=== PATIENT | male | born 1990 ===

== ENCOUNTER 2020-06-28 10:38 | Outpatient (REF) | payer OTHER, SELFPAY ==
[2020-06-28 15:08] LABS: Alanine Aminotransferase 72 U/L (0-40); Albumin Level 4.7 g/dL (3.5-5.0); Alkaline Phosphatase 87 U/L (39-117); Anion Gap 12 (12-20); Aspartate Amino Transferase 35 U/L (5-37); Bilirubin Total 0.7 mg/dL (0.0-1.0); Blood Urea Nitrogen 12 mg/dL (9-16); Calcium 9.5 mg/dL (8.4-10.2); Carbon Dioxide 31 mmol/L (22-29); Chloride 102 mmol/L (96-108); Cholesterol 261 mg/dL; Estimated Glomerular Filt Rate > 60; Glucose Fasting 97 mg/dL (60-99); HDL Cholesterol 43 mg/dL; LDL Cholesterol Calculated 164 mg/dl; Potassium 3.8 mmol/l (3.3-5.1); Sodium 141 mmol/L (135-145); Total Protein 7.6 g/dL (6.5-8.0); Triglycerides 270 mg/dL
[2020-06-28 15:20] LABS: TSH reflex Free T4 0.75 mIU/mL (0.32-4.0)
[2020-07-02 11:52] LABS: Testosterone, Total 424 ng/dL (250-1100)
== END 2020-06-28 10:39 | disposition home or self-care (01) ==
LOC: HO.HMGCLDS 10:38
PROVIDERS: PCP Nurse Practitioner Family; Visit Provider Nurse Practitioner Family
DX: Z00.00 Encounter for general adult medical examination without abnormal findings (principal); N52.9 Male erectile dysfunction, unspecified; R74.8 Abnormal levels of other serum enzymes
CPT/HCPCS: 80053; 80061; 84403; 84443

== ENCOUNTER 2020-07-08 08:34 | Outpatient (REF) | payer OTHER, SELFPAY ==
--- NOTE | 2020-07-08 08:59 | US_ITS ---
EXAMINATION: US ABDOMEN COMPLETE CLINICAL INFORMATION: Abnormal levels of other serum enzymes. R74.8 COMPARISON: None TECHNIQUE: Real-time imaging of the abdominal viscera. FINDINGS: PANCREAS: Normal in size and contour and echogenicity. No pancreatic ductal distention. ABDOMINAL AORTA: The proximal, mid, and distal segments are normal in caliber. INFERIOR VENA CAVA: Visualized portions are normal. LIVER: Liver is normal in size and smooth in contour. Hepatic parenchymal echogenicity is borderline increased which may suggest mild underlying hepatic steatosis. There is no intrahepatic ductal dilatation or focal hepatic parenchymal lesion. GALLBLADDER: Normal. The gallbladder is physiologically distended without evidence of stones, sludge, polyps, wall thickening or pericholecystic fluid. COMMON BILE DUCT: Normal in caliber measuring 0.3 cm in diameter. RIGHT KIDNEY: Normal. No hydronephrosis. No renal calculi or focal parenchymal lesions. The kidney measures 9.8 cm in maximum dimension. LEFT KIDNEY: Normal. No hydronephrosis. No renal calculi or focal parenchymal lesions. The kidney measures 10.2 cm in maximum dimension. SPLEEN: Normal. The spleen measures 10.7 cm in maximum dimension. FREE FLUID: None. US/US abdomen complete IMPRESSION: 1. Probable mild hepatic steatosis. No focal parenchymal lesion. 2. No cholelithiasis or ductal dilatation. 3. Unremarkable pancreas.
== END 2020-07-08 08:35 | disposition home or self-care (01) ==
LOC: HO.HMGCX 08:34
PROVIDERS: Visit Provider Nurse Practitioner Family
DX: R74.8 Abnormal levels of other serum enzymes (principal)
CPT/HCPCS: 76700

== ENCOUNTER 2020-08-24 16:22 | Outpatient (REF) | payer OTHER, SELFPAY | END 2020-08-24 16:23 | disposition home or self-care (01) | LOC: HO.LAB 16:22 | PROVIDERS: Visit Provider Nurse Practitioner Family | DX: R30.0 Dysuria (principal) | CPT/HCPCS: 87086; 87088; 87186 ==

== ENCOUNTER 2023-11-27 13:57 | Outpatient (AMB) | payer OTHER, SELFPAY ==
--- NOTE | 2023-11-27 14:03 | AM.OFFWIN_ITS ---
Intake Vital Signs 11/27/23 14:04 Height 6 ft 2 in Weight 236 lb BMI 30.3 BP 130/76 Blood Pressure Location Rt brachial Position Sitting Pulse 65 Pulse Source Pulse Oximeter Temp 98.0 F Temp Source Oral Pulse Oximetry (%) 96 Oxygen Delivery Method Room Air Intake Visit Reasons: EP Left knee Pain Intake Note: pt is here for left knee pain due to playing in ball pit with his daughter last week and her a crack/pop Patient Tobacco Use Status: Never used Tobacco Allergies No Known Allergies Allergy (Verified 11/27/23 14:33) Medication List - Last Reconciled 11/27/23 by ELINA Pimentel No Known Home Meds Do you need a note to return to daycare/school/sports/work: Yes HPI HPI Comments History of Present Illness Details Patient is 33-year-old male in today for sick visit. He states that 10 days prior he was at an indoor plate placed with his child, he jumped into the ball pit thinking it was much deeper that really was, he landed awkwardly on his left knee. He states that at that time he did here cracking noise. He has been able to ambulate the affected limb, however the pain has persisted has gotten increasingly worse over time. Patient works on his feet throughout the day this is an having his ability to work. Has not tried any medication for relief. [facility] Medical History (Updated 11/27/23 @ 14:32 by ELINA Pimentel) Dyslipidemia Erectile dysfunction Social History Alcohol intake: current Alcohol intake frequency: a few times a month Patient Tobacco Use Status: Never used Tobacco Review of Systems Const All systems reviewed & are unremarkable except as noted in HPI and below Physical Exam Vital Signs: Last Vital Signs Temp 98.0 F 11/27/23 14:04 Pulse 65 11/27/23 14:04 BP 130/76 11/27/23 14:04 Pulse Ox 96 11/27/23 14:04 Oxygen Delivery Method Room Air 11/27/23 14:04 BMI result Body Mass Index 30.3 Const Other: Appearance: Alert.? Oriented X3.? No acute distress.? Head: Normocephalic,. Neck: Normal inspection.? Neck supple.? CVS: Normal heart rate and rhythm.? Pulses normal.? Respiratory: No respiratory distress. Abdomen: Soft and nontender.? Skin: Skin warm and dry.? Normal skin color.? Normal skin turgor.? Extremities: No lower extremity edema.? negative Lachmans, negative Mcmurrays test. Patient is able to ambulate on extremity. Neuro: Oriented X 3.? No motor deficit.? No sensory deficit. Assessment & Plan Assessment & Plan (1) Left knee sprain: Comment: X-ray appears negative in office. Patient will be given knee brace. Patient will be given meloxicam. Patient has been instructed to get inserts for shoes. To rest the affected joint and ice. Code(s): S83.92XA - Sprain of unspecified site of left knee, initial encounter Qualifiers: Encounter type: initial encounter Involved ligament of knee: unspecified ligament Qualified Code(s): S83.92XA - Sprain of unspecified site of left knee, initial encounter Plan: Take your medications as prescribed. If you were prescribed antibiotics today, it is important that you take your medication to their entirety, do not skip any doses, do not finish them early. Follow-up with your primary care provider this week. Return to the emergency department with new or worsening symptoms. Such as fevers, chills, chest pain, shortness of breath, nausea, vomiting, dizziness, headache, vision changes, lethargy In case of emergency call 911 Medications: New meloxicam 15 mg PO DAILY 14 tabs 0RF Coding Level of Care Code Est Pt Level 3 (26513) Diagnoses Sprain of left knee, unspecified ligament, initial encounter S83.92XA Encounter type: initial encounter Involved ligament of knee: unspecified ligament Time Spent (min) 31
[2023-11-27 14:04] VITALS: BP 130/76; PULSE 65; TEMP 36.7; O2SAT 96; BMI 30.3
== END 2023-11-27 15:50 | disposition home or self-care (01) ==
PROVIDERS: Visit Provider Nurse Practitioner Primary Care
DX: S83.92XA Sprain of unspecified site of left knee, initial encounter (principal)
CPT/HCPCS: 99213

== ENCOUNTER 2023-11-27 14:11 | Outpatient (REF) | payer OTHER, SELFPAY ==
--- NOTE | ~2023-11-27 | XR_ITS ---
EXAMINATION: XR KNEE, LEFT CLINICAL INFORMATION: Pain COMPARISON: None available. TECHNIQUE: Four views of the left knee. FINDINGS: No acute visible fracture or dislocation. Slight narrowing of the medial femorotibial compartment. Joint space alignment otherwise maintained. Small knee joint effusion. Soft tissues are unremarkable. XR/XR knee LT 4V IMPRESSION: 1. No acute visible fracture or dislocation. 2. Slight narrowing of the medial femorotibial compartment. 3. Small knee joint effusion.
== END 2023-11-27 14:12 | disposition home or self-care (01) ==
LOC: HO.HMGCX 14:11
PROVIDERS: Visit Provider Nurse Practitioner Primary Care
DX: M25.562 Pain in left knee (principal)
CPT/HCPCS: 73564

== ENCOUNTER 2023-12-05 10:50 | Outpatient (AMB) | payer OTHER, SELFPAY ==
--- NOTE | 2023-12-05 11:12 | MHC.OFFWIV ---
Intake Vital Signs 12/05/23 11:15 Height 6 ft 2 in BP 130/78 Blood Pressure Location Rt brachial Position Sitting Pulse 97 Pulse Source Pulse Oximeter Temp 99.0 F Temp Source Oral Pulse Oximetry (%) 99 Intake Visit Reasons: EP Strep throat Intake Note: pt is here for sore throat Patient Tobacco Use Status: Never used Tobacco Allergies No Known Allergies Allergy (Verified 12/05/23 11:15) Do you need a note to return to daycare/school/sports/work: Yes HPI HPI Comments History of Present Illness Details 33 y/o male patient who presents to walk in clinic with c/o sore throat since yesterday night. Pt reports he was in contact with someone with strep - he shook his hands. PFSH Medical History Dyslipidemia Erectile dysfunction Social History Alcohol intake: current Alcohol intake frequency: a few times a month Patient Tobacco Use Status: Never used Tobacco Review of Systems Const All systems reviewed & are unremarkable except as noted in HPI and below Physical Exam Vital Signs: Last Vital Signs Temp 99.0 F 12/05/23 11:15 Pulse 97 12/05/23 11:15 BP 130/78 12/05/23 11:15 Pulse Ox 99 12/05/23 11:15 Const General: comfortable and no acute distress Nutritional Appearance: well nourished Orientation/consciousness: patient oriented x3 HEENT Head: Yes normocephalic Ears: external ears normal and TM's normal bilaterally General nose exam: Normal nasal mucous membranes and turbinates present Face and sinus: Yes sinuses nontender Mouth: moist mucous membranes Throat: Yes posterior oropharynx normal Resp Effort & Inspection: normal respiratory effort and able to speak in complete sentences Auscultation: clear to auscultation bilaterally, no crackles, no rales, no rhonchi and no wheezes Cardio Rate: regular rate Rhythm: regular rhythm Neuro General: patient oriented x3 Assessment & Plan Assessment & Plan (1) Sore throat (viral): Code(s): J02.8 - Acute pharyngitis due to other specified organisms; B97.89 - Other viral agents as the cause of diseases classified elsewhere Plan: - OTC remedies - Rest, hydrate with warm fluids and honey - RTC if not better. -Acetaminophen for pain relief. Coding Level of Care Code Est Pt Level 3 (28999) Diagnoses Sore throat (viral) J02.8; B97.89 Time Spent (min) 15
[2023-12-05 11:15] VITALS: BP 130/78; PULSE 97; TEMP 37.2; O2SAT 99
== END 2023-12-05 12:35 | disposition home or self-care (01) ==
PROVIDERS: Visit Provider Nurse Practitioner Family
DX: J02.8 Acute pharyngitis due to other specified organisms (principal); B97.89 Other viral agents as the cause of diseases classified elsewhere
CPT/HCPCS: 99213

== ENCOUNTER 2024-03-13 15:37 | Outpatient (AMB) | payer OTHER, SELFPAY ==
--- NOTE | 2024-03-13 15:39 | MHC.PC.OV ---
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 Concern about testosterone levels, std testing, and request for complete blood work order. 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 He has not been seen in the office for 3 years. Patient believes he has symptoms of low testosterone. It includes fatigue all day. Low motivation to work and erectile dysfunction at times. Patient is having a troubled relationship at home. Able to work and do activities of daily living. Does not admit to symptoms of racing thoughts or insomnia. He reports that his father had similar symptoms which improved on testosterone replacement. 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 1. Little interest or pleasure in doing things: several days 2. Feeling down, depressed, or hopeless: several days 3. Trouble falling or staying asleep, or sleeping too much: several days 4. Feeling tired or having little energy: more than half the days 5. Poor appetite or overeating: several days 6. Feeling bad about yourself - or that you are a failure or have let yourself or your family down: several days 7. Trouble concentrating on things, such as reading the newspaper or watching television: not at all 8. Moving or speaking so slowly that other people could have noticed. Or the opposite - being so fidgety or restless that you have been moving around a lot more than usual: not at all 9. Thoughts that you would be better off or of hurting yourself in some way: not at all Total score: 7 Depression Screening Interpretation: Positive Depression Screening Follow-up: Existing condition and Declines treatment Depression Screening Done: Yes Source: Developed by Drs. Jabari Chaves, Nathalie Evans, Brian Rabago and colleagues, with an educational maribell from [employer]. Thrive Questionnaire Date Thrive assessed: 03/13/24 I am a: Patient What is your living situation today?: I have a steady place to live Within the past 12 months, did the food you bought not last and you didn't have the money to get more?: I choose not to answer this question Within the past 12 months, did you worry whether your food would run out before you got money to buy more?: I choose not to answer this question Do you have trouble paying for medicines?: I choose not to answer this question Do you have trouble getting transportation to medical appointments?: I choose not to answer this question Do you have trouble paying your heating and electricity bill?: I choose not to answer this question Do you have trouble taking care of your child, family member or friend?: I choose not to answer this question Do you have trouble with day-to-day activities such as bathing, preparing meals, shopping, managing finances, etc.?: I choose not to answer this question Are you currently unemployed and looking for a job?: I choose not to answer this question Are you interested in more education?: I choose not to answer this question Please select the resources that you would like help with: None Currently or been in a relationship where the following occur: I choose not to answer THRIVE Score: 0 AUDIT C Alcohol Use Questionnaire (AUDIT-C) 1. How often do you have a drink containing alcohol?: 2-4 times a month 2. How many drinks containing alcohol do you have on a typical day when you are drinking?: 3 or 4 3. How often do you have six or more drinks on one occasion?: Never Total Score: 3 DANNY-7 AMB Questionnaire DANNY-7 Date DANNY - 7 assessed: 03/13/24 Feeling nervous, anxious, or on edge: 0 = Not at all Not being able to stop or control worryin = Not at all Worrying too much about different things: 0 = Not at all Trouble relaxin = Not at all Being so restless that it is hard to sit still: 0 = Not at all Becoming easily annoyed or irritable: 1 = Several days Feeling afraid as if something awful might happen: 0 = Not at all Total DANNY-7 score (0-4 normal; 5-9 mild; 10-14 moderate; 15-21 severe): 1 Source: Developed by Drs. Jabari Chaves, Nathalie Evans, Brian Rabago and colleagues, with an educational maribell from [employer]. Physical exam (Primary Care) Vital Signs: Last Vital Signs Pulse 60 03/13/24 15:41 BP 100/60 03/13/24 15:41 Pulse Ox 98 03/13/24 15:41 Oxygen Delivery Method Room Air 03/13/24 15:41 Care Plan Goal for BP management: Blood pressure is in range. BMI result Body Mass Index 27.9 Tobacco/Smoking Status: Tobacco use Status Tobacco use date assessed 03/13/24 03/13/24 15:44 Patient Tobacco Use Status Never used Tobacco 03/13/24 15:40 e-Cigarette/Vaping Use Never Used 03/13/24 15:44 PHQ-9: PHQ-9 Score PHQ-9: Total score 7 03/13/24 15:40 Depression Screening Interpretation: Positive Depression Screening Follow-up: Existing condition and Declines treatment Thrive Assessment: Date of Thrive Assessment Date Thrive assessed 03/13/24 03/13/24 15:40 Currently or been in a relationship where the following occur: I choose not to answer Const General: cooperative and healthy appearing Nutritional Appearance: well nourished Orientation/consciousness: patient oriented x3 Limitations: no limitations HENMT Head: Yes normal to inspection Eyes General: appearance normal, both eyes and all related structures Neck Neck: Yes normal visual inspection Chest Chest palpation & inspection: normal palpation of entire chest wall Resp Effort & Inspection: normal respiratory effort Neuro General: patient oriented x3 Assessment and Plan Assessment & Plan (1) Fatigue: Code(s): R53.83 - Other fatigue Plan: Blood work including total testosterone levels have been ordered. Patient was instructed to go to the lab between 08:00 and 10:00 in the morning to get the blood drawn. This will allow for accurate testosterone levels. Will follow-up after the results are available to discuss further workup. Orders: Orders Testosterone, Free/Total Today R53.83 - Other fatigue Basic Metabolic Panel Today R53.83 - Other fatigue Complete Blood Count no Diff Today R53.83 - Other fatigue Lipid Panel Today R53.83 - Other fatigue UA and rflx microscopic Today R53.83 - Other fatigue Erythrocyte Sedimentation Rate Today R53.83 - Other fatigue Liver Panel Today R53.83 - Other fatigue Coding Level of Care Code New Pt Level 3 (39966) Complex EM visit Add On G2211 Diagnoses Fatigue R53.83
[2024-03-13 15:41] VITALS: BP 100/60; PULSE 60; O2SAT 98; BMI 27.9
== END 2024-03-13 16:54 | disposition home or self-care (01) ==
PROVIDERS: Visit Provider Internal Medicine
DX: R53.83 Other fatigue (principal)
CPT/HCPCS: 99213; G2211

== ENCOUNTER 2024-03-21 11:32 | Outpatient (REF) | payer OTHER, SELFPAY ==
[2024-03-21 13:29] LABS: Hematocrit 45.8 % (42.0-52.0); Hemoglobin 15.5 g/dl (14.0-18.0); Mean Corpuscular HGB Conc 33.8 g/dl (31.0-36.0); Mean Corpuscular Hemoglobin 29.2 pg (27.0-33.0); Mean Corpuscular Volume 86.4 fL (80.0-98.0); Mean Platelet Volume 10.6 fL (9.4-12.4); Platelet Count 248 X10*3/uL (160-400); Red Cell Distribution Width 12.5 % (11.0-16.0); White Blood Count 6.1 X10*3/uL (4.8-10.8)
[2024-03-21 14:00] LABS: Appearance Urine Turbid; Color Urine Yellow; Glucose Urine UA Negative (Negative); Leukocyte Esterase Urine Negative (Negative); Nitrite Urine Negative (Negative); Specific Gravity - Urine >= 1.030 (1.005-1.025); Urine Blood Negative (Negative); Urine Ketones Trace mg/dL (Negative); Urine Protein Negative (Neg-Trace)
[2024-03-21 14:14] LABS: Alanine Aminotransferase 42 U/L (0-40); Albumin Level 4.2 g/dL (3.5-5.0); Alkaline Phosphatase 91 U/L (39-117); Anion Gap 11 (12-20); Aspartate Amino Transferase 22 U/L (5-37); Bilirubin Direct 0.1 mg/dL (0.0-0.5); Bilirubin Total 0.5 mg/dL (0.0-1.0); Blood Urea Nitrogen 15 mg/dL (9-16); Calcium 10.1 mg/dL (8.4-10.2); Carbon Dioxide 30 mmol/L (22-29); Chloride 105 mmol/L (96-108); Cholesterol 191 mg/dL (<200); Estimated Glomerular Filt Rate > 60; Glucose Random 105 mg/dL (60-115); HDL Cholesterol 42 mg/dL (>40); LDL Cholesterol Calculated 83 mg/dL (<100); Sodium 142 mmol/L (135-145); Total Protein 6.9 g/dL (6.5-8.0); Triglycerides 331 mg/dL (<150)
[2024-03-21 14:45] LABS: Erythrocyte Sedimentation Rate 2 MM/HR (0-15)
[2024-03-27 15:13] LABS: Testosterone, Free 54.6 pg/mL (35.0-155.0); Testosterone, Total 248 ng/dL (250-1100)
== END 2024-03-21 11:33 | disposition home or self-care (01) ==
LOC: HO.HMGCLDS 11:32
PROVIDERS: PCP Internal Medicine; Visit Provider Internal Medicine
DX: R53.83 Other fatigue (principal)
CPT/HCPCS: 36415; 80048; 80061; 80076; 81003; 84402; 84403; 85027; 85652

== ENCOUNTER → 2024-04-03 15:18 | Outpatient (BNVA) | payer OTHER, SELFPAY | PROVIDERS: PCP Internal Medicine; Visit Provider Internal Medicine | DX: E29.1 Testicular hypofunction (principal); F41.1 Generalized anxiety disorder ==

== ENCOUNTER → 2024-04-03 15:18 | Outpatient (AMB) | payer OTHER, SELFPAY ==
[2024-04-03 15:39] VITALS: BP 100/58; PULSE 60; O2SAT 96; BMI 28.6
--- NOTE | 2024-04-03 15:39 | MHC.PC.OV ---
Vital Signs 04/03/24 15:39 Height 6 ft 2 in Weight 222 lb 8 oz BMI 28.6 BP 100/58 L Blood Pressure Location Lt brachial Position Sitting Pulse 60 Pulse Source Pulse Oximeter Pulse Oximetry (%) 96 Oxygen Delivery Method Room Air Intake Visit Reasons: test results Intake Note: Patient is here to follow up on Testosterone results. Industrial Tractor Driver Required: No Office Manager Executive Assistant: Not Required per policy Accompanied by: Self / Same As Patient Allergies No Known Allergies Allergy (Verified 04/03/24 15:39) Tobacco use date assessed: 04/03/24 Dental Screening Dental Screen Date: 03/13/24 HPI test results HPI Details 34-year-old male presents to the office to discuss his test results. The total testosterone was 248 and free testosterone was 54.6. Total testosterone has declined from a previous value. The test was done in the morning as instructed. Patient reports low energy, fatigue. He admits to have had panic attacks in the past but no history of anxiety. He has never taken medications for anxiety or depression. He admits that his sleep is disturbed. He feels he is in a fugue state. Reports erectile dysfunction. 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 Cognitive needs: No Hearing needs: No Vision needs: Yes (Glasses) Questionnaire Thrive Questionnaire Date Thrive assessed: 03/13/24 I am a: Patient What is your living situation today?: I have a steady place to live Within the past 12 months, did the food you bought not last and you didn't have the money to get more?: I choose not to answer this question Within the past 12 months, did you worry whether your food would run out before you got money to buy more?: I choose not to answer this question Do you have trouble paying for medicines?: I choose not to answer this question Do you have trouble getting transportation to medical appointments?: I choose not to answer this question Do you have trouble paying your heating and electricity bill?: I choose not to answer this question Do you have trouble taking care of your child, family member or friend?: I choose not to answer this question Do you have trouble with day-to-day activities such as bathing, preparing meals, shopping, managing finances, etc.?: I choose not to answer this question Are you currently unemployed and looking for a job?: I choose not to answer this question Are you interested in more education?: I choose not to answer this question Please select the resources that you would like help with: None Currently or been in a relationship where the following occur: I choose not to answer THRIVE Score: 0 DANNY-7 AMB Questionnaire DANNY-7 Date DANNY - 7 assessed: 03/13/24 Source: Developed by Drs. Jabari Chaves, Nathalie Evans, Brian Rabago and colleagues, with an educational maribell from [employer]. Physical exam (Primary Care) Vital Signs: Last Vital Signs Pulse 60 04/03/24 15:39 BP 100/58 L 04/03/24 15:39 Pulse Ox 96 04/03/24 15:39 Oxygen Delivery Method Room Air 04/03/24 15:39 BMI result Body Mass Index 28.6 Tobacco/Smoking Status: Tobacco use Status Tobacco use date assessed 04/03/24 04/03/24 15:40 Patient Tobacco Use Status Never used Tobacco 04/03/24 15:40 e-Cigarette/Vaping Use Never Used 04/03/24 15:40 Thrive Assessment: Date of Thrive Assessment Date Thrive assessed 03/13/24 04/03/24 15:40 Currently or been in a relationship where the following occur: I choose not to answer Const General: cooperative and healthy appearing Nutritional Appearance: well nourished Orientation/consciousness: patient oriented x3 Limitations: no limitations HENMT Head: Yes normal to inspection Eyes General: appearance normal, both eyes and all related structures Neck Neck: Yes normal visual inspection Chest Chest palpation & inspection: normal palpation of entire chest wall Resp Effort & Inspection: normal respiratory effort Neuro General: patient oriented x3 Assessment and Plan Assessment & Plan (1) Hypogonadism in male: Code(s): E29.1 - Testicular hypofunction Plan: Testosterone, total and free will be repeated in 4 weeks. Along with it, FSH and LH levels will be ordered. This will distinguish primary from secondary hypogonadism. An endocrine opinion will be obtained to determine testosterone replacement. (2) Generalized anxiety disorder: Code(s): F41.1 - Generalized anxiety disorder Plan: Patient does have mild anxiety and dysthymia. He is reluctant to acknowledge it or take medications. I spent 20 minutes discussing the condition with him. Orders: Orders Testosterone, Free/Total Today E29.1 - Testicular hypofunction Lutenizing Hormone Today E29.1 - Testicular hypofunction Follicle Stimulating Hormone Today E29.1 - Testicular hypofunction Coding Level of Care Code Est Pt Level 4 (00163) Complex EM visit Add On G2211 Diagnoses Hypogonadism in male E29.1 Generalized anxiety disorder F41.1
== END ==
PROVIDERS: PCP Internal Medicine; Visit Provider Internal Medicine
DX: E29.1 Testicular hypofunction (principal); F41.1 Generalized anxiety disorder

== ENCOUNTER 2024-04-28 14:34 | Outpatient (REF) | payer OTHER, SELFPAY ==
[2024-04-29 07:58] LABS: Follicle Stimulating Hormone 2.5 mIU/mL (1.4-12.8); Lutenizing Hormone 2.1 mIU/mL (1.5-9.3)
[2024-05-03 15:53] LABS: Testosterone, Free 42.1 pg/mL (35.0-155.0); Testosterone, Total 277 ng/dL (250-1100)
== END 2024-04-28 14:35 | disposition home or self-care (01) ==
LOC: HO.LAB 14:34
PROVIDERS: PCP Internal Medicine; Visit Provider Internal Medicine
DX: E29.1 Testicular hypofunction (principal)
CPT/HCPCS: 36415; 83001; 83002; 84402; 84403

== ENCOUNTER 2024-05-20 14:30 | Outpatient (AMB) | payer OTHER, SELFPAY ==
--- NOTE | 2024-05-20 14:47 | MHC.PC.OV ---
Vital Signs 05/20/24 14:51 Height 6 ft 2 in Weight 232 lb 2 oz BMI 29.8 BP 100/70 Blood Pressure Location Lt brachial Position Sitting Pulse 72 Pulse Source Pulse Oximeter Pulse Oximetry (%) 97 Oxygen Delivery Method Room Air Intake Visit Reasons: Lab results Intake Note: Patient is here to follow up on Lab results. Mica Paster Required: No Electronic Organ Mechanic: Not Required per policy Accompanied by: Self / Same As Patient Allergies No Known Allergies Allergy (Verified 05/21/24 05:43) Medication List - Last Reconciled 05/21/24 by Rj Tomlin MD No Known Home Meds Tobacco use date assessed: 05/20/24 Dental Screening Dental Screen Date: 03/13/24 HPI Lab results HPI Details 34-year-old male presents to the office for a follow-up visit. Repeat testosterone, FSH and LH labs were done 4 weeks after the first time. Patient continues to reports symptoms of fatigue, 'brain fog' with no improvement in any symptoms. Continues to work, able to function and do all activities of daily living. 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 Cognitive needs: No Hearing needs: No Vision needs: Yes (Glasses) Questionnaire Thrive Questionnaire Date Thrive assessed: 03/13/24 I am a: Patient What is your living situation today?: I have a steady place to live Within the past 12 months, did the food you bought not last and you didn't have the money to get more?: I choose not to answer this question Within the past 12 months, did you worry whether your food would run out before you got money to buy more?: I choose not to answer this question Do you have trouble paying for medicines?: I choose not to answer this question Do you have trouble getting transportation to medical appointments?: I choose not to answer this question Do you have trouble paying your heating and electricity bill?: I choose not to answer this question Do you have trouble taking care of your child, family member or friend?: I choose not to answer this question Do you have trouble with day-to-day activities such as bathing, preparing meals, shopping, managing finances, etc.?: I choose not to answer this question Are you currently unemployed and looking for a job?: I choose not to answer this question Are you interested in more education?: I choose not to answer this question Please select the resources that you would like help with: None Currently or been in a relationship where the following occur: I choose not to answer THRIVE Score: 0 DANNY-7 AMB Questionnaire DANNY-7 Date DANNY - 7 assessed: 03/13/24 Source: Developed by Drs. Jabari Chaves, Nathalie Evans, Brian Rabago and colleagues, with an educational maribell from [employer]. Physical exam (Primary Care) Vital Signs: Last Vital Signs Pulse 72 05/20/24 14:51 BP 100/70 05/20/24 14:51 Pulse Ox 97 05/20/24 14:51 Oxygen Delivery Method Room Air 05/20/24 14:51 BMI result Body Mass Index 29.8 Tobacco/Smoking Status: Tobacco use Status Tobacco use date assessed 05/20/24 05/20/24 14:54 Patient Tobacco Use Status Never used Tobacco 05/20/24 14:54 e-Cigarette/Vaping Use Never Used 05/20/24 14:54 Thrive Assessment: Date of Thrive Assessment Date Thrive assessed 03/13/24 05/20/24 14:54 Currently or been in a relationship where the following occur: I choose not to answer Office Procedures Flu Questionnaire Does the patient have a severe egg allergy?: No Does the patient have severe life threatening allergies?: No Does the patient have a fever or illness today?: No Has the patient ever had Guillain-[place] Syndrome?: No Has the patient ever had any past reaction to a flu shot?: No Immunizations Fluarix Triv [id number] (PF) 45 mcg (15 mcg x 3)/0.5 mL IM syringe Performing Provider: Rj Tomlin MD [facility] [place] [facility] Administered by: Caren Adams LPN on 05/20/24 15:01 Dose Route Admin Location Dispensed Lot Number Expiration Date [facility] [place] Veterinary Milk Specialist 0.5 mL IM Left Deltoid 0.5 mL [id number] 01/12/25 [id number] [employer] VIS Given Date VIS Provided VIS Publication Date 05/20/24 Single Vaccine 21 Eligibility Eligibility Date Funding Source Not [facility] Eligible 05/20/24 Private Coding Level of Care Code Est Pt Level 3 (90589) Complex EM visit Add On G2211 Diagnoses Hypogonadism in male E29.1 Assessment & Plan Assessment & Plan (1) Hypogonadism in male: Code(s): E29.1 - Testicular hypofunction Plan: Blood work discussed with patient. Informed him all results are in normal range. Patient would still like to explore the option of receiving testosterone. An appointment with the tetryl nitrator operator for a 2nd opinion has been requested. Orders: Orders Influenza [id number] Immunization 05/20/24 Z23 - Encounter for immunization Referrals Endocrinology Referral E29.1 - Testicular hypofunction
[2024-05-20 14:51] VITALS: BP 100/70; PULSE 72; O2SAT 97; BMI 29.8
== END 2024-05-20 16:15 | disposition home or self-care (01) ==
LOC: HO.HMCH 14:31
PROVIDERS: PCP Internal Medicine; Visit Provider Internal Medicine
DX: E29.1 Testicular hypofunction (principal)

== ENCOUNTER → 2024-05-20 14:30 | Outpatient (BNVA) | payer OTHER, SELFPAY | PROVIDERS: PCP Internal Medicine; Visit Provider Internal Medicine | DX: E29.1 Testicular hypofunction (principal); Z23 Encounter for immunization | CPT/HCPCS: 90471; 90656 ==

== ENCOUNTER 2024-05-27 13:55 | Outpatient (AMB) | payer OTHER, SELFPAY ==
--- NOTE | 2024-05-27 14:03 | A.OFFVIS_ITS ---
Vital Signs 05/27/24 14:05 Height 6 ft 3.47 in Weight 236 lb 8.896 oz BMI 29.2 BP 114/74 Blood Pressure Location Rt brachial Position Sitting Pulse 76 Pulse Source Pulse Oximeter Intake Visit Reasons: Testicular hypofunction Intake Note: New patient internally referred by PCP for Testicular Hypofunction. Bander And Cellophaner Machine Required: No Accompanied by: Self / Same As Patient Allergies No Known Allergies Allergy (Verified 05/27/24 14:05) Medication List - Last Reconciled 05/27/24 by Jabari Ricci MD No Known Home Meds HPI Comments Details: 34 YO Male who is seen in consultation at the request of his PCP for Hypogonadism. First diagnosed with Hypogonadism 4 yrs ago with labs revealing testosterone 4 yrs ago . Never Was started on Testosterone supplementation Not Currently using [testosterone]. Currently not achieving spontaneous am erections, and unable to achieve erection when desired. Reports low libido. Increased fatigue Decreased facial hair and shaving frequency. Denies any change in size or shape of testicles. Denies penile discharge or scrotal tenderness. Denies any history of mumps orchitis. Denies any head trauma. Denies history of JUAN R but snores at night . with children 2 children -ages 10 and 12 who were conceived spontaneously. Not looking to have children in near future Sense of smell intact. C/O headache or visual changes, gynecomastia or galactorrhea. Denies orthostatic symptoms, weight loss. Denies change in size of hands or feet. Denies hair loss, weight gain, cold intolerance. 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 Neck exam reveals nl thyroid about 15 gms. Chest exam reveals absence of gynecomastia. Lungs CTA. Heart is S1 S2 Reg R/R. -M/R/G. Abdominal exam is benign. Muscle strength is 5/5 proximally. Examination of genitalia reveals nl size pthalus . Testes are of nl size and consistency. There is Golden Stage V Hair development Assessment & Plan Assessment & Plan (1) Hypogonadism, testicular: Code(s): E29.1 - Testicular hypofunction Category: Medical Plan: This is a 34-year-old male with a history of low normal testosterone. Labs point secondary hypogonadism mild Will recheck a.m. testosterone fasting along with prolactin. Would also check ferritin. Will obtain MRI of the pituitary light of the patient's symptoms of headache and loss of vision. If testosterone remains low with normal prolactin could consider a trial of low-dose testosterone. We will talk to patient's primary provider about obtaining a sleep study anticipation of possibly starting testosterone future Orders: Orders MR head/brain wo/w con Today E29.1 - Testicular hypofunction Prolactin Today E29.1 - Testicular hypofunction Ferritin Today E29.1 - Testicular hypofunction Testosterone, Free/Total Today E29.1 - Testicular hypofunction Coding Level of Care Code New Pt Level 4 (00873) Diagnoses Hypogonadism, testicular E29.1
[2024-05-27 14:05] VITALS: BP 114/74; PULSE 76; BMI 29.2
== END 2024-05-27 14:49 | disposition home or self-care (01) ==
PROVIDERS: PCP Internal Medicine; Visit Provider Internal Medicine Endocrinology, Diabetes & Metabolism
DX: E29.1 Testicular hypofunction (principal)
CPT/HCPCS: 99204

== ENCOUNTER 2024-05-31 10:21 | Outpatient (REF) | payer OTHER, SELFPAY ==
[2024-05-31 12:41] LABS: Ferritin 143 ng/mL (20-250)
[2024-06-01 06:39] LABS: Prolactin 4.5 ng/mL (2.0-18.0)
[2024-06-05 17:54] LABS: Testosterone, Free 50.6 pg/mL (35.0-155.0); Testosterone, Total 262 ng/dL (250-1100)
== END 2024-05-31 10:22 | disposition home or self-care (01) ==
LOC: HO.HMGCLDS 10:21
PROVIDERS: PCP Internal Medicine; Visit Provider Internal Medicine Endocrinology, Diabetes & Metabolism
DX: E29.1 Testicular hypofunction (principal)
CPT/HCPCS: 36415; 82728; 84146; 84402; 84403

== ENCOUNTER 2024-06-30 13:30 | Outpatient (REF) | payer OTHER, SELFPAY ==
[2024-06-30] MEDS: gadobutroL 7.5 ML VIAL IVPUSH (14:29)
== END 2024-06-30 13:31 | disposition home or self-care (01) ==
LOC: HO.MRI 13:30
PROVIDERS: PCP Internal Medicine; Visit Provider Internal Medicine Endocrinology, Diabetes & Metabolism
DX: E29.1 Testicular hypofunction (principal)
CPT/HCPCS: 70553; A9585

== ENCOUNTER → 2024-07-15 08:08 | Outpatient (REF) | payer OTHER, SELFPAY | LOC: HO.SL 08:08 | PROVIDERS: PCP Internal Medicine; Visit Provider Internal Medicine | DX: G47.33 Obstructive sleep apnea (adult) (pediatric) (principal) | CPT/HCPCS: 95806 ==

== ENCOUNTER → 2024-07-16 08:18 | Outpatient (BNV) | payer OTHER, SELFPAY | PROVIDERS: PCP Internal Medicine; Visit Provider Internal Medicine | DX: R06.83 Snoring (principal); G47.10 Hypersomnia, unspecified | CPT/HCPCS: 95806 ==

== ENCOUNTER 2024-08-05 14:28 | Outpatient (AMB) | payer OTHER, SELFPAY ==
--- NOTE | 2024-08-05 14:30 | A.OFFVIS_ITS ---
Vital Signs 08/05/24 14:32 Height 6 ft 3.47 in Weight 227 lb 15.327 oz BMI 28.1 BP 122/70 Blood Pressure Location Rt brachial Position Sitting Pulse 74 Pulse Source Pulse Oximeter Intake Visit Reasons: f/u hypogonadism Intake Note: Patient present today for Hypogonadism follow up. Drapery Estimator Required: No Accompanied by: Self / Same As Patient Allergies No Known Allergies Allergy (Verified 08/05/24 14:33) HPI Comments Details: 34 YO Male who is seen in consultation at the request of his PCP for Hypogonadism. First diagnosed with Hypogonadism 4 yrs ago with labs revealing testosterone 4 yrs ago . Never Was started on Testosterone supplementation Not Currently using [testosterone]. Currently not achieving spontaneous am erections, and unable to achieve erection when desired. Reports low libido. Increased fatigue Decreased facial hair and shaving frequency. Denies any change in size or shape of testicles. Denies penile discharge or scrotal tenderness. Denies any history of mumps orchitis. Denies any head trauma. Denies history of JUAN R but snores at night . with children 2 children -ages 10 and 12 who were conceived spontaneously. Not looking to have children in near future Sense of smell intact. C/O headache or visual changes, gynecomastia or galactorrhea. Denies orthostatic symptoms, weight loss. Denies change in size of hands or feet. Denies hair loss, weight gain, cold intolerance. History of DVT or PE: No use of anabolic steroids No use of methadone or suboxone or marijuana Labs: Testosterone is low normal as his free testosterone. MRI showed the absence of any pituitary adenoma. 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 Labs point secondary hypogonadism mild Plan is to talk to the patient about potentially initiating low-dose testo sterone to see if there resolution of symptoms. Will start Xyosted 50 mg intramuscular Q weekly. Will check peak and trough testosterone, CBC in 6 weeks time and adjust testosterone. Went over side effects of testosterone including but not limited to polycythemia and DVT and rare risk of unmasking prostate cancer which would be non-existent in a 34-year-old Orders: Orders Hematocrit 6 Weeks E29.1 - Testicular hypofunction Hemoglobin 6 Weeks E29.1 - Testicular hypofunction Testosterone, Free/Total 6 Weeks E29.1 - Testicular hypofunction Testosterone, Free/Total 5 Weeks E29.1 - Testicular hypofunction Medications: New testosterone enanthate (Xyosted) 50 mg (0.5 mL) subcut QWEEK 2 mL 5RF Coding Level of Care Code Est Pt Level 3 (57480) Diagnoses Hypogonadism, testicular E29.1
[2024-08-05 14:32] VITALS: BP 122/70; PULSE 74; BMI 28.1
== END 2024-08-05 15:05 | disposition home or self-care (01) ==
PROVIDERS: PCP Internal Medicine; Visit Provider Internal Medicine Endocrinology, Diabetes & Metabolism
DX: E29.1 Testicular hypofunction (principal)
CPT/HCPCS: 99213

== ENCOUNTER → 2024-08-05 14:28 | Outpatient (BNVA) | payer OTHER, SELFPAY | PROVIDERS: PCP Internal Medicine; Visit Provider Internal Medicine Endocrinology, Diabetes & Metabolism ==

== ENCOUNTER 2024-09-09 13:49 | Outpatient (REF) | payer OTHER, SELFPAY ==
[2024-09-09 14:40] LABS: Hematocrit 44.8 % (42.0-52.0); Hemoglobin 15.3 g/dl (14.0-18.0)
[2024-09-21 13:38] LABS: Testosterone, Total 399 ng/dL (250-1100)
== END 2024-09-09 13:50 | disposition home or self-care (01) ==
LOC: HO.LAB 13:49
PROVIDERS: PCP Internal Medicine; Visit Provider Internal Medicine Endocrinology, Diabetes & Metabolism
DX: E29.1 Testicular hypofunction (principal)
CPT/HCPCS: 36415; 84402; 84403; 85014; 85018

== ENCOUNTER 2024-09-12 13:32 | Outpatient (REF) | payer OTHER, SELFPAY ==
[2024-09-12 13:49] LABS: MANUAL DIFF FLAG NO
[2024-09-12 14:16] LABS: Basophils Percent Auto 0.5 % (0-2); Eosinophils Absolute Auto 0.1 X10*3/uL (0.0-0.4); Eosinophils Percent Auto 1.2 % (0-4); Hematocrit 45.2 % (42.0-52.0); Hemoglobin 15.3 g/dl (14.0-18.0); Imm Gran Abs Auto 0.02 X10*3/uL (0.00-0.03); Imm Gran Pct Auto 0.3 % (0.0-0.4); Lymphocytes Absolute Auto 2.2 X10*3/uL (1.2-4.9); Mean Corpuscular HGB Conc 33.8 g/dl (31.0-36.0); Mean Corpuscular Volume 85.8 fL (80.0-98.0); Mean Platelet Volume 9.8 fL (9.4-12.4); Monocytes Absolute Auto 0.4 X10*3/uL (0.1-1.2); Monocytes Percent Auto 5.9 % (2-11); Neutrophils Absolute Auto 3.9 x10*3/uL (2.0-8.3); Neutrophils Percent Auto 59.1 % (45-73); Platelet Count 294 X10*3/uL (160-400); Red Blood Count 5.27 X10*6/uL (4.60-5.80); Red Cell Distribution Width 12.8 % (11.0-16.0); White Blood Count 6.6 X10*3/uL (4.8-10.8)
== END 2024-09-12 13:33 | disposition home or self-care (01) ==
LOC: HO.LAB 13:32
PROVIDERS: Absent Provider Nurse Practitioner Adult Health; PCP Internal Medicine; Visit Provider Internal Medicine Endocrinology, Diabetes & Metabolism
DX: E29.1 Testicular hypofunction (principal)
CPT/HCPCS: 36415; 85025

== ENCOUNTER 2024-11-04 15:54 | Outpatient (AMB) | payer OTHER, SELFPAY ==
--- NOTE | 2024-11-04 15:59 | A.OFFVIS_ITS ---
Vital Signs 11/04/24 16:00 Height 6 ft 3.47 in Weight 229 lb 8.019 oz BMI 28.3 BP 110/70 Blood Pressure Location Rt brachial Position Sitting Pulse 86 Pulse Source Pulse Oximeter Pulse Oximetry (%) 98 Oxygen Delivery Method Room Air Intake Visit Reasons: Hypogonadism Intake Note: Patient present today for Hypogonadism follow up. Tailing Machine Operator Required: No Accompanied by: Self / Same As Patient Allergies No Known Allergies Allergy (Verified 11/04/24 16:01) Medication List - Last Reconciled 11/04/24 by Jabari Ricci MD testosterone cypionate 50 mg (0.25 mL) IM QWEEK HPI Comments Details: 34 YO Male who is seen in consultation at the request of his PCP for Hypogonadism. First diagnosed with Hypogonadism 4 yrs ago with labs revealing testosterone 4 yrs ago . Never Was started on Testosterone supplementation Currently using [testosterone]. Currently not achieving spontaneous am erections, and unable to achieve erection when desired. Reports low libido. Increased fatigue Decreased facial hair and shaving frequency. Denies any change in size or shape of testicles. Denies penile discharge or scrotal tenderness. Denies any history of mumps orchitis. Denies any head trauma. Denies history of JUAN R but snores at night . with children 2 children -ages 10 and 12 who were conceived spontaneously. Not looking to have children in near future Sense of smell intact. C/O headache or visual changes, gynecomastia or galactorrhea. Denies orthostatic symptoms, weight loss. Denies change in size of hands or feet. D enies hair loss, weight gain, cold intolerance. History of DVT or PE: No use of anabolic steroids No use of methadone or suboxone or marijuana Labs: Testosterone is low normal as his free testosterone. MRI showed the absence of any pituitary adenoma. Sleep study did not show sleep apnea PSA CBC Currently on testosterone intramuscular 50 mg Q weekly. The patient is a 34-year-old male presenting with concerns regarding low testosterone levels and persistent symptoms of hypogonadism such as low libido and fatigue. He has been undergoing testosterone cypionate treatment at a dose of 50 mg weekly. Despite this regimen, the patient reports minimal noticeable improvement in his symptoms, except for a slightly improved recovery time post- exercise. Initial testing prior to treatment showed testosterone levels at approximately 225 ng/dL. On treatment, levels increased to around 399-400 ng/dL, yet symptoms remained largely unchanged. The patient recounts feeling similar even when pr evious testosterone levels were around 400 ng/dL in past years, suggesting a consistent pattern despite treatment adjustments. The objective is to reassess and possibly adjust his current dosage to achieve a more significant alleviation of his symptoms. 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 Labs point secondary hypogonadism mild. Currently on testosterone intramuscular 50 mg Q weekly 1. Hypogonadism The patient's symptoms align with hypogonadism, displaying persistent low libido and fatigue despite current testosterone cypionate therapy. Upon lab review, testosterone levels improved post-therapy yet symptoms persist, suggesting the need to increase the testosterone dose to 75 mg weekly. The proposed adjustment aims to enhance symptomatic response. Monitoring will focus on trough and peak testosterone levels, with potential interval modifications such as dosing every five days to optimize hormonal balance. Further lab testing is scheduled for six weeks, and follow-up will reassess symptom relief and efficacy. During this visit, we reviewed the patient's current testosterone treatment plan in response to persistent symptoms of hypogonadism, despite an improvement in testosterone levels from treatment. We discussed increasing the testosterone cypionate dosage to 75 mg weekly to potentially enhance therapeutic effects and symptom relief. I explained the necessity of regular monitoring to avoid supra- physiological levels, with the potential risks associated with overtreatment, such as elevated testosterone levels possibly leading to other endocrine disturbances. We addressed peak and trough assessments to adjust the treatment further if needed. The importance of follow-up laboratory assessments within six weeks and subsequent clinical review within four months were emphasized to evaluate the potential need for further adjustments based on symptomatic respon se and lab findings. - Increase your testosterone dosage to 75 mg weekly as directed. - Continue your regular exercise routine and report any significant changes in how you feel. - Plan to complete follow-up lab work in about six weeks to re-evaluate testosterone peak and trough levels. - For the interim, maintain a consistent injection schedule to assist in monitoring therapy. - Note any changes in symptoms or side effects and report them at the next follow-up visit. - A follow-up visit is recommended in approximately four months to assess treatment efficacy and potential further dosage adjustments. The patient had an opportunity to ask questions regarding treatment plan. The patient expressed understanding and agreement with the above treatment plan. Patient was informed and verbally consented to the use of an ambient scribe for clinic note documentation during this visit. Orders: Orders Hematocrit 6 Weeks E29.1 - Testicular hypofunction Testosterone, Free/Total 6 Weeks E29.1 - Testicular hypofunction Hemoglobin 6 Weeks E29.1 - Testicular hypofunction Testosterone, Free/Total 7 Weeks E29.1 - Testicular hypofunction Medications: Changed From testosterone cypionate 50 mg (0.25 mL) IM QWEEK 100 mL 4RF To testosterone cypionate 75 mg (0.375 mL) IM QWEEK 100 mL 4RF Coding Level of Care Code Est Pt Level 3 (11703) Diagnoses Hypogonadism, testicular E29.1
[2024-11-04 16:00] VITALS: BP 110/70; PULSE 86; O2SAT 98; BMI 28.3
== END 2024-11-04 16:19 | disposition home or self-care (01) ==
LOC: HO.ENCR 15:55
PROVIDERS: PCP Internal Medicine; Visit Provider Internal Medicine Endocrinology, Diabetes & Metabolism
DX: E29.1 Testicular hypofunction (principal)
CPT/HCPCS: 99213

== ENCOUNTER 2025-02-18 09:54 | Outpatient (REF) | payer OTHER, SELFPAY ==
[2025-02-18 13:47] LABS: Hematocrit 49.3 % (42.0-52.0); Hemoglobin 16.9 g/dl (14.0-18.0)
[2025-02-22 17:54] LABS: Testosterone, Free 184.7 pg/mL (35.0-155.0)
== END 2025-02-18 09:55 | disposition home or self-care (01) ==
LOC: HO.HMGCLDS 09:54
PROVIDERS: PCP Internal Medicine; Visit Provider Internal Medicine Endocrinology, Diabetes & Metabolism
DX: H92.02 Otalgia, left ear (principal); R51.9 Headache, unspecified; E29.1 Testicular hypofunction
CPT/HCPCS: 36415; 84402; 84403; 85014; 85018

== ENCOUNTER 2025-02-18 09:54 | Outpatient (AMB) | payer OTHER, SELFPAY ==
[2025-02-18 09:57] VITALS: BP 122/80; PULSE 60; TEMP 36.6; O2SAT 98; BMI 29.3
--- NOTE | 2025-02-18 09:57 | MHC.OFFWIV ---
Intake Vital Signs 02/18/25 09:57 Height 6 ft 3.47 in Weight 237 lb BMI 29.3 BP 122/80 Blood Pressure Location Lt brachial Position Sitting Pulse 60 Pulse Source Pulse Oximeter Temp 97.9 F Temp Source Oral Pulse Oximetry (%) 98 Intake Visit Reasons: EP Ear infection? Patient Tobacco Use Status: Never used Tobacco Labor Relations Consultant Required: No Allergies No Known Allergies Allergy (Verified 02/18/25 10:04) Do you need a note to return to daycare/school/sports/work: Yes HPI HPI Comments History of Present Illness Details History of Present Illness - The patient is a 35-year-old male presenting with left ear pain and headache. - The left ear pain began this morning around 4:00 to 4:30 AM, initially accompanied by a splitting headache. - The patient noted that the pain intensified when chewing, and there was no associated fever or cough. - The patient is planning to go on a cruise and is concerned about managing symptoms during the trip. - No recent exposure to illnesses or known allergies. - He denies fever, chills, CP, SOB, cough, runny nose, or sick contacts. Physical Exam General: Cooperative, healthy appearing, comfortable, no acute distress and well developed Head: nc/at Ears: No tragus tenderness noted. No mastoid tenderness noted. No discharge or cerumen in the ear canal. TM is clear, no effusion noted. Not bulging, good cone of light noted. Nose: Normal external nose present Face and sinus: No sinus tenderness noted. Eyes: Appearance normal, both eyes and all related structures Neck: Normal visual inspection and Yes full ROM. No lymphadenopathy noted Respiratory: Normal respiratory effort and able to speak in complete sentences. Clear to auscultation bilaterally. No w/r/r noted. Cardiovascular: Regular rate and rhythm. Normal S1 and S2. No m/r/g noted. Skin: No rashes or lesions noted Patient was informed and verbally consented to the use of an ambient scribe for clinic note documentation during this visit. 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 - Prescribe steroid ear drops for potential ear pain management during the cruise. - Tylenol or Motrin as needed for pain. - Follow up as needed. Medications: New fluticasone propionate 50 mcg/actuation administer into each nostril 1 spray intranasal Q12H 16 grams 0RF cetirizine-pseudoephedrine 5-120 mg ER 1 tab PO BID 14 tabs 0RF 7 days tcqamroj-[id number]-QE 3.5-10,000-1 mg/mL-unit/mL-% 4 drps otic (ears) Q8H 10 mL 0RF 7 days Coding Level of Care Code Est Pt Level 3 (89308) Diagnoses Left ear pain H92.02
--- OUTSIDE RECORDS SUMMARY | 2025-02-18 10:26 | XMS_ITS | Clinical Summary ---
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 Not on ealr e 08/30/2023 Are you concerned about learning? Not on file 08/30/2023 No 08/30/2023 No 08/30/2023 Digital Access Answer Date Recorded No 08/30/2023 No 08/30/2023 Reliable internet access at home? Not on file 08/30/2023 Device with a working camera? Not on file Sex and Gender Information Value Date Recorded Sex Assigned at Not on file Legal Sex Male 8:52 AM EST Gender Identity Not on file Sexual Orientation Not on file Last Filed Vital Signs Vital Sign Reading Time Taken Comments Blood Pressure 116/70 09/11/2023 12:06 PM EST Pulse 84 09/11/2023 12:06 PM EST Temperature - - Respiratory Rate 16 09/11/2023 12:06 PM EST Oxygen Saturation 99% 09/11/2023 12:06 PM EST Inhaled Oxygen Concentration - - Weight 104.3 kg (230 lb) 09/11/2023 12:06 PM EST Height 188 cm (6' 2 ) 09/11/2023 12:06 PM EST Body Mass Index 29.53 09/11/2023 12:06 PM EST Plan of Treatment Health Maintenance Due Date Last Done Comments Adult Td,Tdap Booster 1990 LIPID PANEL 1990 DEPRESSION SCREENING 2002 SMOKING Hx and SMOKELESS TOB ACCO SCREENING 2003 HEPATITIS C SCREENING 02/04/2008 HIV ONE-TIME SCREENING (18-6 5 YEARS) 02/04/2008 COVID-19 VACCINE (1 - 2024-2 5 season) 2024 SCREENING FOR DIABETES 2025 HEPATITIS A VACCINES Aged Out No long er eligible based on patient's age to complete this topic HIB VACCINES Aged Out No longer eligi ble based on patient's age to complete this topic MENINGOCOCCAL VACCINES (ACWY) Aged Out No longer eligible based on patient's age to complete this topic MENINGOCOCCAL VACCINES (B) Aged Out N o longer eligible based on patient's age to complete this topic PNEUMOCOCCAL VACCINES (0-49 years) Aged Out No longer eligible based on patient's age to complete this topic Medical Devices Not on file Insurance O POS EPO O POS EPO O POS EPO [facility] Care Teams Knit Goods Cutter Hand Relationship Specialty Start Date End Date Pcp, Unknown PCP - General 08/30/23 Additional Source Comments The information contained in this document represents components of the legal health record. It is not the complete legal health record.[facility]
== END 2025-02-18 11:27 | disposition home or self-care (01) ==
PROVIDERS: PCP Internal Medicine; Visit Provider Physician Assistant Medical
DX: H92.02 Otalgia, left ear (principal)

== ENCOUNTER 2025-03-09 14:57 | Outpatient (AMB) | payer OTHER, SELFPAY ==
--- NOTE | 2025-03-09 14:59 | MHC.OFFVIS ---
Vital Signs 03/09/25 15:02 Height 6 ft 3.47 in Weight 240 lb 15.444 oz BMI 29.7 BP 112/82 Blood Pressure Location Rt brachial Position Sitting Pulse 77 Pulse Source Pulse Oximeter Pulse Oximetry (%) 97 Oxygen Delivery Method Room Air Intake Visit Reasons: Hypogonadism Intake Note: Patient present today for Hypogonadism follow up. Autocad Draftsman Required: No Accompanied by: Self / Same As Patient Allergies No Known Allergies Allergy (Verified 03/09/25 15:02) Medication List - Last Reconciled 03/09/25 by Jabari Ricci MD cetirizine-pseudoephedrine 5-120 mg ER 1 tab PO BID 7 days fluticasone propionate 50 mcg/actuation 1 spray intranasal Q12H needle (disp) 23 gauge (BD PrecisionGlide Non-Sterile) As directed to inject testosterone qhmaseoi-ktarzvjko-MN 3.5-10,000-1 mg/mL-unit/mL-% 4 drps otic (ears) Q8H 7 days syringe with needle As directed to withdraw testosterone tadalafil 2.5 mg (1/2 x 5 mg) PO DAILY testosterone cypionate 75 mg (0.375 mL) IM QWEEK HPI Comments Details: 35 YO Male who is seen in consultation at the request of his PCP for Hypogonadism. First diagnosed with Hypogonadism 4 yrs ago with labs revealing testosterone 4 yrs ago . Never Was started on Testosterone supplementation Currently using [testosterone]. Currently not achieving spontaneous am erections, and unable to achieve erection when desired. Reports low libido. Increased fatigue Decreased facial hair and shaving frequency. Denies any change in size or shape of testicles. Denies penile discharge or scrotal tenderness. Denies any history of mumps orchitis. Denies any head trauma. Denies history of JUAN R but snores at night . with children 2 children -ages 10 and 12 who were conceived spontaneously. Not looking to have children in near future Sense of smell intact. C/O headache or visual changes, gynecomastia or galactorrhea. Denies orthostatic symptoms, weight loss. Denies change in size of hands or feet. Denies hair loss, weight gain, cold intolerance. History of DVT or PE: No use of anabolic steroids No use of methadone or suboxone or marijuana Labs: Testosterone is low normal as his free testosterone. MRI showed the absence of any pituitary adenoma. Sleep study did not show sleep apnea PSA CBC Currently on testosterone intramuscular 75 mg Q weekly. The patient is a 34-year-old male presenting with concerns regarding low testosterone levels and persistent symptoms of hypogonadism such as low libido and fatigue. He has been undergoing testosterone cypionate treatment at a dose of 75 mgq 5 days The patient is a 35-year-old male presenting for management of testosterone therapy and associated symptoms. The patient has been on testosterone therapy, initially administered once weekly, but reported inadequate symptom relief. The dosage was adjusted to every five days, which resulted in improved symptom control and testosterone levels within the upper normal range. The patient reports weight gain, which was discussed as a potential effect of increased muscle mass due to testosterone therapy. He denies any significant changes in dietary habits or physical activity levels. The patient also experiences sleep disturbances, attributed to poor sleep hygiene due to a busy schedule. He typically goes to bed at 11:30 PM and wakes up at 4:00 AM, resulting in daytime fatigue. - Labs: Testosterone level at 928 ng/dL, within upper normal range. 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 Labs point secondary hypogonadism mild. Currently on testosterone intramuscular 75 mg Q 5 days During the visit, we discussed the patient's current testosterone therapy regimen, which has been adjusted to every five days, resulting in improved symptom control and testosterone levels. We also addressed the patient's concerns about weight gain, which may be due to increased muscle mass from the therapy. Additionally, we talked about the patient's sleep disturbances, likely due to poor sleep hygiene, and recommended adjustments to bedtime and wake time. Future evaluation of endogenous testosterone production without supplementation was also discussed and I will have patient hold the testosterone for 2-3 weeks and recheck a.m. testosterone fasting 1 week later prior to follow up appointment. We will also check other axis of pituitary including a.m. cortisol and TSH and free T4 I also renewed daily Cialis prescription The patient had an opportunity to ask questions regarding treatment plan. The patient expressed understanding and agreement with the above treatment plan. Patient was informed and verbally consented to the use of an ambient scribe for clinic note documentation during this visit. Orders: Orders Cortisol Random Today E29.1 - Testicular hypofunction Free T4 (Free Thyroxine) Today E29.1 - Testicular hypofunction Thyroid Stimulating Hormone Today E29.1 - Testicular hypofunction Testosterone, Free/Total 5 Months E29.1 - Testicular hypofunction Medications: Changed From testosterone cypionate 75 mg (0.375 mL) IM QWEEK 100 mL 4RF To testosterone cypionate 75 mg (0.375 mL) IM .q 5 days 100 mL 4RF From tadalafil 2.5 mg (1/2 x 5 mg) PO DAILY 30 tabs 2RF To tadalafil 5 mg PO DAILY 30 tabs 2RF Coding Level of Care Code Est Pt Level 3 (38486) Diagnoses Hypogonadism, testicular E29.1
[2025-03-09 15:02] VITALS: BP 112/82; PULSE 77; O2SAT 97; BMI 29.7
--- OUTSIDE RECORDS SUMMARY | 2025-03-09 16:39 | XMS_ITS | Clinical Summary ---
Author Organization [facility] Address [address] [address] Phone Care Team Providers Care Watch Supervisor Name Role Phone Pcp, Unknown Primary Care Provider Unavailabl e Allergies No known active allergies Medications No known medications Social History Tobacco Use Types Packs/Day Years Used Date Smoking Tobacco: Never Assessed Education Answer Date Recorded Are you interested in more education? Not on earl e 08/30/2023 Are you concerned about learning? [...] EPO O POS EPO [facility] Care Teams Watch Supervisor Relationship Specialty Start Date End Date Pcp, Unknown PCP - General 08/30/23 Additional Source Comments The information contained in this document represents components of the legal health record. It is not the complete legal health record.[facility]
== END 2025-03-09 15:27 | disposition home or self-care (01) ==
LOC: HO.ENCR 14:59
PROVIDERS: PCP Internal Medicine; Visit Provider Internal Medicine Endocrinology, Diabetes & Metabolism
DX: E29.1 Testicular hypofunction (principal)
CPT/HCPCS: 99213